=== PATIENT | female | born 1940 | race Caucasian/White ===

== ENCOUNTER 2023-04-01 13:01 | Day surgery (SDC) | payer MEDICARE, SELFPAY ==
--- NOTE | 2023-04-01 | FL_ITS ---
[address] [address] Patient Name: FERMIN MOY MRN: [id number] date: 1940 Sex: F Assigned Patient Location: [place] Current Patient Location: Accession/Order Number: [id number] Exam Date: 04/01/2023 14:00 Report Date: 04/01/2023 15:38 At the request of: NON-STAFF PHYSICIAN Procedure: FL hip inj RT EXAMINATION: FL hip inj RT HISTORY: Osteoarthritis of right hip M16.11 COMPARISON: No relevant comparison available. FLUOROSCOPY TIME: Fluoro time measures 1 minute and 2 images were obtained. TECHNIQUE: A joint injection was performed in the usual sterile manner after obtaining informed consent. Standard level fluoroscopic mode of operation utilized. FINDINGS: JOINT: Right hip. NEEDLE: 22 gauge, 3.5 spinal needle. MEDICATION: 6cc buffered 1% lidocaine for subcutaneous anesthesia 2cc Omnipaque-300 iodinated contrast to visualize the joint space Mixture of Kenalog 40 mg, 0.5% Bupivacaine 2 mL and Omnipaque 300 10mL was injected into the joint space. TECHNIQUE: Anterior approach with prior localization of the femoral artery. A single stick was successful in gaining access to the joint space. CLINICAL: 5 out of 10 pain preprocedure. 4 out of 10 pain following injection COMPLICATIONS: None. OTHER: Negative. IMPRESSION: Technically successful right hip therapeutic arthrogram with minimal improvement in the patient's pain Electronically authenticated by: ISIDRO CLINE Date: 04/01/2023 15:38
[2023-04-01] MEDS: TRIAMCINOLONE ACETONIDE 40 MG/ML VIAL INJ (14:10)
[2023-04-01] MEDS: LIDOCAINE HCL 10 ML, SODIUM BICARBONATE 1 MEQ INJ (14:10)
[2023-04-01] MEDS: BUPIVACAINE HCL 0.5% PF 50 MG/10 ML VIAL 2 ML INJ (14:10)
--- NOTE | 2023-04-01 14:56 | PC.NURSE ---
Pt states that she has numbness to her right anterior thigh.
--- NOTE | 2023-04-01 14:58 | PC.NURSE ---
Pt uses a walker when walking. Gait steady.
--- NOTE | 2023-04-01 15:07 | PC.NURSE ---
1410 Time out completed with staff present Lucinda [address] [place]
== END 2023-04-01 14:32 | disposition home or self-care (01) ==
PROVIDERS: Radiology Diagnostic Radiology
DX: M16.11 Unilateral primary osteoarthritis, right hip (principal)
CPT/HCPCS: 20610; 77002; Q9967

== ENCOUNTER 2024-05-18 10:46 | Day surgery (SDC) | payer MEDICARE, SELFPAY ==
--- NOTE | 2024-05-18 10:51 | FL_ITS ---
The [address] [address] Patient Name: FERMIN MOY MRN: [id number] date: 1940 Sex: F Assigned Patient Location: [place] Current Patient Location: [place] Accession/Order Number: [id number] Exam Date: 05/18/2024 10:55 Report Date: 05/18/2024 12:29 At the request of: PALMIRA LEWIS Procedure: FL hip inj LT EXAMINATION: FL hip inj LT, FL guided needle placement HISTORY: Primary Osteoarthritis Of Left Hip COMPARISON: No relevant comparison available. FLUORO DOSE: 31.8 seconds. 2.84 mGy Reference air kerma (Ka,r) TECHNIQUE: A joint injection was performed in the usual sterile manner after obtaining informed consent. Standard level fluoroscopic mode of operation utilized. FINDINGS: JOINT: Left hip. NEEDLE: 22 gauge, 3.5 spinal needle. MEDICATION: 5 cc 1% buffered lidocaine. 3 mL Omnipaque 240, 2 mL 0.5% bupivacaine. 40 mg Kenalog TECHNIQUE: Anterior approach with prior localization of the femoral artery. A single stick was successful in gaining access to the joint space. CLINICAL: 5 out of 10 pain before the injection. 5 out of 10 pain following the injection COMPLICATIONS: None. OTHER: Negative. FL/FL hip inj LT IMPRESSION: Technically successful left hip therapeutic arthrogram Electronically authenticated by: ISIDRO CLINE Date: 05/18/2024 12:29
--- NOTE | 2024-05-18 10:51 | FL_ITS ---
[address] [address] Patient Name: FERMIN MOY MRN: [id number] date: 1940 Sex: F Assigned Patient Location: [place] Current Patient Location: [place] Accession/Order Number: [id number] Exam Date: 05/18/2024 10:55 Report Date: 05/18/2024 12:29 At the request of: PALMIRA LEWIS Procedure: FL guided needle placement EXAMINATION: FL hip inj LT, FL guided needle placement HISTORY: Primary Osteoarthritis Of Left Hip COMPARISON: No relevant comparison available. FLUORO DOSE: 31.8 seconds. 2.84 mGy Reference air kerma (Ka,r) TECHNIQUE: A joint injection was performed in the usual sterile manner after obtaining informed consent. Standard level fluoroscopic mode of operation utilized. FINDINGS: JOINT: Left hip. NEEDLE: 22 gauge, 3.5 spinal needle. MEDICATION: 5 cc 1% buffered lidocaine. 3 mL Omnipaque 240, 2 mL 0.5% bupivacaine. 40 mg Kenalog TECHNIQUE: Anterior approach with prior localization of the femoral artery. A single stick was successful in gaining access to the joint space. CLINICAL: 5 out of 10 pain before the injection. 5 out of 10 pain following the injection COMPLICATIONS: None. OTHER: Negative. FL/FL guided needle placement IMPRESSION: Technically successful left hip therapeutic arthrogram Electronically authenticated by: ISIDRO CLINE Date: 05/18/2024 12:29
[2024-05-18] MEDS: LIDOCAINE HCL 10 ML, SODIUM BICARBONATE 1 MEQ INJ (11:35)
[2024-05-18] MEDS: TRIAMCINOLONE ACETONIDE 40 MG/ML VIAL INJ (11:35)
[2024-05-18] MEDS: BUPIVACAINE HCL 0.5% PF 50 MG/10 ML VIAL 2 ML INJ (11:35)
--- NOTE | 2024-05-18 12:50 | SUR.PREOP ---
05/14/24 Pt instructed on procedure, date, time, and prep.
== END 2024-05-18 12:00 | disposition home or self-care (01) ==
LOC: FL 10:49
PROVIDERS: Radiology Diagnostic Radiology; Visit Provider Orthopaedic Surgery
DX: M16.12 Unilateral primary osteoarthritis, left hip (principal)
CPT/HCPCS: 20610; 77002; J0665; J3301; Q9966